=== PATIENT | male | born 1965 | race Caucasian/White ===

== ENCOUNTER 2019-11-17 01:50 | Inpatient (IN) | payer BC, MEDICARE ==
[~2019-11-17] VITALS: Ht 182.9 cm; Wt 113.6 kg
[~2019-11-17 01:50] MED LIST: CYCL-394 PO; ZOF4T PO
[2019-11-17] MEDS ORDERED: albuterol 2.5 MG/3 ML nebule NEB ONE (02:20)
[2019-11-17] MEDS ORDERED: normal saline 1000ML IV soln IVB ONE (02:20)
[2019-11-17 02:22] LABS: BASOPHILS % (AUTO) 0.4 % (0-1); EOSINOPHILS % (AUTO) 0.5 % (0-6); HEMATOCRIT 41.9 % (42.0-52.0); HEMOGLOBIN 14.5 g/dl (14.0-17.9); LYMPHOCYTES % (AUTO) 10.8 % (21-51); MEAN CORPUSCULAR HEMOGLOBIN 32.3 PG (27.0-31.0); MEAN CORPUSCULAR HGB CONC 34.7 g/dL (33.0-36.5); MEAN CORPUSCULAR VOLUME 92.9 FL (78-98); MEAN PLATELET VOLUME 7.7 FL (7.4-10.4); MONOCYTES # (AUTO) 1.2 X10'3 (0-0.9); NEUTROPHILS # (AUTO) 7.1 X10'3 (1.8-7.7); NEUTROPHILS % (AUTO) 75.3 % (42-75); PLATELET COUNT 250 X10'3 (140-440); RED CELL DISTRIBUTION WIDTH 12.9 % (11.5-14.5); WHITE BLOOD COUNT 9.4 X10'3 (4.5-11.0)
[2019-11-17 02:28] LABS: ALANINE AMINOTRANSFERASE 18 U/L (12-78); ALBUMIN 3.9 G/DL (3.4-5.0); ALKALINE PHOSPHATASE 88 IU/L (46-116); ANION GAP 9 (8-16); ASPARTATE AMINO TRANSFERASE 25 U/L (10-37); BILIRUBIN,TOTAL 0.8 MG/DL (0.1-1.0); BLOOD UREA NITROGEN 13 MG/DL (7-18); BUN/CREATININE RATIO 13.4 (5.4-32.0); CALCIUM 9.5 MG/DL (8.5-10.1); CHLORIDE 104 MMOL/L (99-107); CREATININE 0.97 MG/DL (0.60-1.10); GLUCOSE 106 MG/DL (70-104); POTASSIUM 4.5 MMOL/L (3.5-5.1); SODIUM 138 MMOL/L (135-145); TOTAL CARBON DIOXIDE 24.9 MMOL/L (24-32); TOTAL PROTEIN 7.7 G/DL (6.4-8.2); eGFR 81 ML/MIN
[2019-11-17 02:31] LABS: TROPONIN I < 0.04 NG/ML (0.0-0.05)
[2019-11-17] MEDS ORDERED: iohexol 350MG/ML 100ml bottle IV ONE (02:38)
[2019-11-17] MEDS ORDERED: TIOT4MIS2 INH (03:10)
[2019-11-17] MEDS ORDERED: OMEP-50 PO (03:10)
[2019-11-17] MEDS ORDERED: FLUT1BLS3 INH (03:10)
[2019-11-17] MEDS ORDERED: LISI-600 PO (03:10)
[2019-11-17] MEDS ORDERED: CHOL100046 PO (03:10)
[2019-11-17] MEDS ORDERED: ALBU18HF2 INH (03:10)
[2019-11-17] MEDS ORDERED: IBUP-1986 PO (03:10)
[2019-11-17] MEDS ORDERED: SIMV-45 PO (03:10)
[2019-11-17 03:22] LABS: PARTIAL THROMBOPLASTIN TIME 28 SECONDS (22-32)
[2019-11-17 03:33] LABS: UA COLLECTION TYPE URINAL
[2019-11-17 03:34] LABS: CLARITY,URINE Clear (Clear); COLOR,URINE YELLOW (Yellow); GLUCOSE, URINE NEGATIVE (Neg); KETONES,URINE NEGATIVE (Neg); OCCULT BLOOD,URINE MODERATE (Neg); PROTEIN,URINE Negative (Neg)
[2019-11-17 03:35] LABS: LEUKOCYTE ESTERASE ,URINE NEGATIVE (Neg); NITRITES, URINE NEGATIVE (Neg)
[2019-11-17 03:39] LABS: WBC,URINE NONE SEEN /HPF (0-4)
[2019-11-17 03:40] LABS: BACTERIA,URINE NONE SEEN /HPF (Neg); RBC,URINE 0-2 /HPF (0-2); SQUAMOUS EPITHELIAL CELL,UR NONE SEEN /LPF (FEW)
[2019-11-17] MEDS ORDERED: methylPREDNISolone sod succ 125mg/2ml vial IV ONE (04:05)
[2019-11-17] MEDS ORDERED: azithromycin 250mg tablet PO ONE (04:05)
[2019-11-17] MEDS: albuterol 2.5 MG/3 ML nebule CONTNEB PRN ×2 (04:27→06:00)
[2019-11-17] MEDS ORDERED: LORazepam 2 mg/ml vial IV ONE (05:20)
[2019-11-17] MEDS ORDERED: HYDROcodone/acetaminophen 10/325mg tab PO PRN (05:35)
[2019-11-17] MEDS ORDERED: ipratropium/albuterol 3ml nebule NEB PRN (05:35)
[2019-11-17] MEDS ORDERED: ondansetron/PF 4mg/2ml inj IV PRN (05:35)
[2019-11-17] MEDS ORDERED: potassium Cl 20 mEq SR tablet PO PRN ×2 (05:35)
[2019-11-17] MEDS ORDERED: magnesium 4gm in 100ml NS 100 ML IV PRN (05:35)
[2019-11-17] MEDS ORDERED: magnesium hydroxide 30ml (MOM) UD suspension PO PRN (05:35)
[2019-11-17] MEDS ORDERED: HYDROcodone/acetaminophen 5mg/325mg tablet PO PRN (05:35)
[2019-11-17] MEDS ORDERED: albuterol 2.5 MG/3 ML nebule NEB PRN (05:35)
[2019-11-17] MEDS ORDERED: magnesium 2GM in 50ml NS 50 ML IV PRN (05:35)
[2019-11-17] MEDS ORDERED: acetaminophen 325mg tablet PO PRN ×2 (05:35)
[2019-11-17] MEDS ORDERED: mag hydrox/Alum hydrox/simeth 30ml oral suspension PO PRN (05:35)
[2019-11-17] MEDS ORDERED: potassium CL 10mEq/100ml bag 100 ML IV PRN ×2 (05:35)
[2019-11-17] MEDS ORDERED: albuterol 2.5 MG/3 ML nebule CONTNEB PRN (05:50)
[2019-11-17] MEDS ORDERED: LORazepam 0.5 MG tablet PO PRN (05:50)
[2019-11-17 06:41] LABS: ABG HCO3 20.6 mmol/L (22.0-26.0); ABG OXYGEN SATURATION 91.6 % (95-98); ABG PCO2 (T) 36.2 mmHg (35.0-45.0); ABG PH (T) 7.373 (7.350-7.450); ABG PO2 (T) 61.8 mmHg (83-108); ALLEN'S TEST POSITIVE; FCOHb 1.7 % (0.5-1.5); TOTAL HEMOGLOBIN 14.6 G/dl (14.0-17.9)
[2019-11-17 06:58] VITALS: BP 125/52
[2019-11-17] MEDS: K and/or MAG REPLACEMENT MC SCH ×2 (07:03→20:00)
[2019-11-17] MEDS: ipratropium 0.5 MG/2.5ML nebule IH SCH ×3 (08:43→21:19)
[2019-11-17] MEDS: enoxaparin 40mg/0.4ml syringe SQ SCH (09:06)
[2019-11-17] MEDS: DOXYCYCLINE 100MG CAPSULE PO SCH ×2 (09:06→21:07)
[2019-11-17] MEDS: methylPREDNISolone sod succ 125mg/2ml vial IV SCH ×3 (09:06→23:32)
[2019-11-17] MEDS: atorvastatin 20mg tablet PO SCH ×2 (09:07→21:07)
[2019-11-17] MEDS: lisinopril 20mg tablet PO SCH (09:07)
[2019-11-17] MEDS: pantoprazole 40mg Tablet.DR PO SCH (09:07)
[2019-11-17 10:43] LABS: URINE AMPHETAMINE SCREEN NEGATIVE (Neg); URINE BARBITUATE SCREEN NEGATIVE (Neg); URINE BENZODIAZEPINES SCREEN NEGATIVE (Neg); URINE CANNABINOID SCREEN NEGATIVE (Neg); URINE COCAINE SCREEN NEGATIVE (Neg); URINE METHADONE SCREEN NEGATIVE (Neg); URINE OPIATE SCREEN NEGATIVE (Neg); URINE PHENCYCLIDINE SCREEN NEGATIVE (Neg)
[2019-11-17 11:00] VITALS: BP 145/85
--- NOTE | 2019-11-17 14:35 | NUR ---
PAGER ID: [phone] MESSAGE: [phone] Harshad Stone was hoping he could get an order for a nicotine patch. Patient is a [employer] smoker. TAYLOR Dunne Ext [phone] Addendum: 11/17/19 at 1511 by Uzair Driver RN PIV's taken out and tele returned.
[2019-11-17 15:00] VITALS: BP 138/80
[2019-11-17] MEDS ORDERED: nicotine 14mg patch - 24hr TD ONE (16:55)
[2019-11-17 18:00] VITALS: BP 110/72
--- NOTE | 2019-11-17 18:31 | NUR ---
received report from TAYLOR Dunne
--- NOTE | 2019-11-17 18:31 | NUR ---
Problems reprioritized. Patient report given, questions answered & plan of care reviewed with TAYLOR Lemons.
[2019-11-17] MEDS: lactobacillus rhamnosus 10,000 MMU CELLS/CAPSULE PO SCH (21:07)
[2019-11-17] MEDS: budesonide 0.5mg/2ml UD nebule IH SCH (21:19)
[2019-11-17 22:00] VITALS: BP 118/73
[2019-11-18 02:00] VITALS: BP 134/79
[2019-11-18] MEDS: ipratropium 0.5 MG/2.5ML nebule IH SCH ×2 (03:00→08:35)
[2019-11-18 05:57] LABS: BASOPHILS % (AUTO) 0.2 % (0-1); EOSINOPHILS % (AUTO) 0 % (0-6); HEMATOCRIT 41.9 % (42.0-52.0); HEMOGLOBIN 14.7 g/dl (14.0-17.9); LYMPHOCYTES # (AUTO) 0.8 X10'3 (1.1-4.8); LYMPHOCYTES % (AUTO) 5.5 % (21-51); MEAN CORPUSCULAR HEMOGLOBIN 32.4 PG (27.0-31.0); MEAN CORPUSCULAR HGB CONC 35.1 g/dL (33.0-36.5); MEAN CORPUSCULAR VOLUME 92.3 FL (78-98); MEAN PLATELET VOLUME 7.7 FL (7.4-10.4); NEUTROPHILS # (AUTO) 12.4 X10'3 (1.8-7.7); NEUTROPHILS % (AUTO) 87.3 % (42-75); PLATELET COUNT 302 X10'3 (140-440); RED BLOOD COUNT 4.54 X10'6 (4.70-6.10); RED CELL DISTRIBUTION WIDTH 12.8 % (11.5-14.5); WHITE BLOOD COUNT 14.2 X10'3 (4.5-11.0)
[2019-11-18 06:00] VITALS: BP 130/82
--- NOTE | 2019-11-18 06:15 | NUR ---
Patient in room PCU 3023. I have received report from TAYLOR Méndez and had the opportunity to ask questions and assume patient care. Patient currently resting in bed, bed locked and low, call light in reach, denies complaints, no acute distress, will continue to monitor.
--- NOTE | 2019-11-18 06:20 | NUR ---
gave report to TAYLOR Singletary
[2019-11-18 06:23] LABS: ALANINE AMINOTRANSFERASE 28 U/L (12-78); ALBUMIN 3.6 G/DL (3.4-5.0); ALBUMIN/GLOBULIN RATIO 0.9 (1.1-1.5); ALKALINE PHOSPHATASE 91 IU/L (46-116); ANION GAP 6 (8-16); ASPARTATE AMINO TRANSFERASE 28 U/L (10-37); BILIRUBIN,TOTAL 0.3 MG/DL (0.1-1.0); BLOOD UREA NITROGEN 21 MG/DL (7-18); BUN/CREATININE RATIO 22.1 (5.4-32.0); CALCIUM 9.3 MG/DL (8.5-10.1); CHLORIDE 105 MMOL/L (99-107); CREATININE 0.95 MG/DL (0.60-1.10); GLUCOSE 147 MG/DL (70-104); MAGNESIUM 2.6 MG/DL (1.5-2.4); POTASSIUM 4.3 MMOL/L (3.5-5.1); SODIUM 140 MMOL/L (135-145); TOTAL PROTEIN 7.5 G/DL (6.4-8.2); eGFR 83 ML/MIN
--- NOTE | 2019-11-18 06:41 | NUR ---
Patient in room PCU 3023. I have received report from Vesta VAZQUEZ and had the opportunity to ask questions and assume patient care.
[2019-11-18] MEDS: methylPREDNISolone sod succ 125mg/2ml vial IV SCH (07:49)
[2019-11-18 07:50] VITALS: BP_SYST 130
[2019-11-18] MEDS: pantoprazole 40mg Tablet.DR PO SCH (07:50)
[2019-11-18] MEDS: lactobacillus rhamnosus 10,000 MMU CELLS/CAPSULE PO SCH (07:50)
[2019-11-18] MEDS: DOXYCYCLINE 100MG CAPSULE PO SCH (07:50)
[2019-11-18] MEDS: lisinopril 20mg tablet PO SCH (07:50)
[2019-11-18] MEDS: enoxaparin 40mg/0.4ml syringe SQ SCH (07:56)
[2019-11-18] MEDS: K and/or MAG REPLACEMENT MC SCH (08:00)
[2019-11-18] MEDS ORDERED: nicotine 14mg patch - 24hr TD SCH (08:00)
[2019-11-18] MEDS: budesonide 0.5mg/2ml UD nebule IH SCH (08:35)
[2019-11-18] MEDS ORDERED: NICO-631 TD (10:03)
[2019-11-18] MEDS ORDERED: IPRA3AMP9 NEB (10:03)
[2019-11-18] MEDS ORDERED: PRED10TA23 PO (10:04)
--- NOTE | 2019-11-18 11:15 | NUR ---
Received orders for patient to discharge home, issue with finalizing med orders due to interactions between levaquin and prednisone/ipratroprium, spoke with Dr. Darnell who said to remove levaquin from discharge, did not provide alternative antibiotic. Educated patient on discharge medications, meds were called to patient pharmacy, instructed patient on discharge orders to follow up with primary and return to ED if condition worsens, IV removed, catheter tip intact, hemostasis achieved, telemetry removed, patient belongings gathered, patient was able to ambulate self to lobby where ride was waiting. Stable at time of discharge.
--- NOTE | 2019-11-18 12:37 | NUR ---
[place]rientee documentation: I have reviewed and agree with all interventions, assessments performed and documented by TAYLOR Salinas.
== END 2019-11-18 11:28 | disposition home or self-care (01) | DRG 193 ==
LOC: ER 01:51 → ED HOLD 06:44 → PCU 3S 07:02
PROVIDERS: ADMIT Family Medicine; ATTEND Family Medicine
PROC: BW241ZZ Computerized Tomography (CT Scan) of Chest and Abdomen using Low Osmolar Contrast (ICD-10-PCS; principal; 2019-11-17)
DX: J18.1 Lobar pneumonia, unspecified organism (principal); J96.00 Acute respiratory failure, unspecified whether with hypoxia or hypercapnia; J44.0 Chronic obstructive pulmonary disease with (acute) lower respiratory infection; J44.1 Chronic obstructive pulmonary disease with (acute) exacerbation; E78.00 Pure hypercholesterolemia, unspecified; E78.5 Hyperlipidemia, unspecified; G47.33 Obstructive sleep apnea (adult) (pediatric); F17.210 Nicotine dependence, cigarettes, uncomplicated; I10 Essential (primary) hypertension; Z80.0 Family history of malignant neoplasm of digestive organs; Z80.1 Family history of malignant neoplasm of trachea, bronchus and lung; Z80.3 Family history of malignant neoplasm of breast; Z82.3 Family history of stroke; Z99.81 Dependence on supplemental oxygen; Z88.0 Allergy status to penicillin; Z79.899 Other long term (current) drug therapy
CPT/HCPCS: 36415; 36600; 71045; 71275; 80053; 80305; 81001; 82803; 83605; 83735; 84145; 84484; 85018; 85025; 85610; 85730; 87040; 87081; 87502; 87503; 93005; 94640; 94760; 96374; 96375; 99291; G0378; J1650; J2060; J2930; J7030; J7626; Q9967